=== PATIENT | male | born 1990 | race Two or more races ===

== ENCOUNTER 2024-09-01 08:03 | Inpatient (IN) | payer OTHER ==
[~2024-09-01] VITALS: Ht 172.7 cm; Wt 81.8 kg
[2024-09-01] MEDS ORDERED: ACET-2080 PO (08:32)
[2024-09-01] MEDS ORDERED: IBUP-1506 PO (08:32)
[2024-09-01 08:40] LABS: BASOPHILS % (AUTO) 0.6 % (0.0-2.0); HEMATOCRIT 47.4 % (41-53); HEMOGLOBIN 16.2 g/dL (13.5-17.5); LYMPHOCYTES # (AUTO) 2.4 K/uL (1.0-4.8); LYMPHOCYTES % (AUTO) 34.6 % (22.0-44.0); MEAN CORPUSCULAR HEMOGLOBIN 31.8 pg (26.0-34.0); MEAN CORPUSCULAR HGB CONC 34.2 G/dL (31.0-37.0); MEAN CORPUSCULAR VOLUME 93 fL (80-100); MONOCYTES # (AUTO) 0.4 K/uL (0.1-1.0); MONOCYTES % (AUTO) 6.3 % (2.0-9.0); NEUTROPHILS # (AUTO) 3.9 K/uL (1.8-7.7); NEUTROPHILS % (AUTO) 57.5 % (40.0-70.0); PLATELET COUNT (AUTO) 308 K/uL (150-450); RED CELL DISTRIBUTION WIDTH 12.9 % (11.5-14.5); WHITE BLOOD COUNT (AUTO) 6.8 K/uL (4.5-11.0)
[2024-09-01 08:53] LABS: ANION GAP 6 mmol/L (8-16); CARBON DIOXIDE 30 mmol/L (22-29); CHLORIDE 101 mmol/L (98-107); CREATININE 1.08 mg/dL (0.60-1.30); GLOMERULAR FILTR. RATE CALC > 60 mL/min (>60); GLUCOSE,RANDOM 100 mg/dL (70-110); SODIUM SERUM 137 mmol/L (136-145); UREA NITROGEN, BLOOD 12 mg/dL (7-18)
[2024-09-01 08:54] LABS: CALCIUM, TOTAL 9.6 mg/dL (8.8-10.5)
[2024-09-01 08:57] LABS: ALCOHOL, URINE DRUG SCREEN NEGATIVE (NEGATIVE); AMPHET/METH SCREEN,URINE POSITIVE (NEGATIVE); BARBITURATE SCREEN, URINE NEGATIVE (NEGATIVE); BENZODIAZEPINES SCREEN,URINE NEGATIVE (NEGATIVE); CANNABINOID SCREEN,URINE NEGATIVE (NEGATIVE); COCAINE SCREEN,URINE NEGATIVE (NEGATIVE); METHADONE SCREEN, URINE NEGATIVE (NEGATIVE); OPIATE SCREEN,URINE NEGATIVE (NEGATIVE); PHENCYCLIDINE SCREEN,URINE NEGATIVE (NEGATIVE)
[2024-09-01 09:56] LABS: PH,URINE DRUG SCREEN 6.5 (5.0-8.0)
[2024-09-01 10:24] LABS: ALCOHOL, BLOOD (SERUM) < 3 mg/dL (0-10)
[2024-09-01 11:59] VITALS: BP 131/78; PULSE 71; RESP 18; TEMP 98.4; O2SAT 99
[2024-09-01] MEDS ORDERED: BISACODYL 10 MG RECTAL RECTAL SUPPOSITORY PR PRN (17:15)
[2024-09-01] MEDS ORDERED: MORPHINE SULFATE 2 MG/ML SYRINGE IVP PRN (17:15)
[2024-09-01] MEDS ORDERED: ACETAMINOPHEN 325 MG TABLET PO PRN (17:15)
[2024-09-01] MEDS ORDERED: ALBUTEROL SULFATE 2.5 MG/0.5 ML NEB SOLUTION NEB PRN (17:15)
[2024-09-01] MEDS: ACETAMINOPHEN/CODEINE 300-30 MG TABLET PO PRN (17:15)
[2024-09-01] MEDS ORDERED: HYDROCODONE/ACETAMINOPHEN 5-325 MG TABLET PO PRN (17:15)
[2024-09-01] MEDS ORDERED: MAGNESIUM HYDROXIDE SUSPENSION 30 ML UDCUP PO PRN (17:15)
[2024-09-01] MEDS ORDERED: IPRATROPIUM BROMIDE 0.5 MG/2.5 ML NEB SOLUTION NEB PRN (17:15)
[2024-09-01] MEDS ORDERED: ONDANSETRON HCL 4 MG/2 ML VIAL IVP PRN (17:15)
[2024-09-01 19:55] VITALS: BP 120/68; PULSE 94; RESP 18; TEMP 98.2; O2SAT 98
[2024-09-01] MEDS: IBUPROFEN 400 MG TABLET PO PRN (20:15)
[2024-09-01] MEDS: ZOLPIDEM TARTRATE 5 MG TABLET PO PRN (23:25)
[2024-09-01] MEDS: HEPARIN SODIUM,PORCINE 5,000 UNITS/ML VIAL SQ SCH (23:25)
[2024-09-02] MEDS: PANTOPRAZOLE SODIUM 40 MG DR TABLET PO SCH (08:53)
[2024-09-02 10:03] VITALS: BP 115/77; PULSE 65; RESP 18; TEMP 98; O2SAT 99
[2024-09-02] MEDS: AMOX TR/POT CLAV 500 MG/125 MG TABLET PO ONE (12:41)
[2024-09-02] MEDS: AMOX TR/POT CLAV 500 MG/125 MG TABLET PO SCH (19:57)
[2024-09-02 20:30] VITALS: BP 124/69; PULSE 80; RESP 18; TEMP 97.7; O2SAT 98
[2024-09-03 04:38] VITALS: BP 89/49; PULSE 68; RESP 18; TEMP 97.7; O2SAT 98
[2024-09-03] MEDS ORDERED: AMOX1TAB15 PO (07:26)
== END 2024-09-03 15:24 | DRG 897 ==
LOC: EMS 08:03 → EDH 08:40 → 6S 11:20
PROVIDERS: ADMIT Hospitalist; ATTEND Hospitalist
DX: F15.13 Other stimulant abuse with withdrawal (principal); K08.89 Other specified disorders of teeth and supporting structures; R45.850 Homicidal ideations; Z79.899 Other long term (current) drug therapy
CPT/HCPCS: 71045; 80048; 80307; 85025; 93005; 99285; G0480; J1644; 36415-L1; 36415-TC